=== PATIENT | male | born 1975 | race Caucasian/White ===

== ENCOUNTER 2016-05-03 09:27 | Emergency (ER) | payer OTHER ==
[~2016-05-03] VITALS: Ht 190.5 cm; Wt 122.7 kg
[2016-05-03 09:29] VITALS: BP 148/103; PULSE 103; RESP 16; O2SAT 97
--- NOTE | 2016-05-03 09:42 | ED.REPORT ---
HPI-Extremity Problem Lower Date of Service May 03, 2016 ED Provider: Dr. Reagan Patrick M.D. A 41 year old male with a history of hypertension presents to the ED with left calf pain and swelling onset today upon awakening. The pain waxes and wanes. The patient denies chest pain, shortness of breath, or cough. 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 He also denies injury/trauma to the area or recent surgeries. The patient has a family history of DVT. Nursing Notes Stated Complaint: L LEG PAIN Chief Complaint: Extremity Trauma Nursing Notes Reviewed: Yes Allergies: Coded Allergies: Sulfa (Sulfonamide Antibiotics) (Verified Allergy, Severe, Anaphylaxis, ) morphine (Verified Adverse Reaction, Severe, Cardiac Arrest, 05/03/16) meperidine (Verified Adverse Reaction, Unknown, 05/03/16) Scheduled Enoxaparin (Lovenox) 120 Mg/0.8 Ml Syringe 120 MG SUBQ BID Warfarin Sodium (Warfarin Sodium) 5 Mg Tablet 5 MG PO DAILY General Time Seen by MD: 09:41 Chief Complaint Other (Left calf pain) Hx Obtained From: Patient Arrived By: Walk-in Onset Occurred: 1 - 4 hours ago Symptom Duration: Since onset Location: : Leg left (Calf) Quality: Painful Severity: Current: Moderate Severity: Maximum: Moderate Associated with: Reports: Fever, Swelling Pertinent Negative: Relieved by nothing Immunizations: Unknown Recent Healthcare: No recent doctor visit Similar Sx Previous: No Past Medical History Past Medical History Hypertension Past Surgical History None reported Family History DVT Smoking History Unknown if Ever Smoker Social History Other Social History: Good social support Ambulatory Status Independent Review of Systems Constitutional: Denies: Fever Musculoskeletal: Reports: Extremity pain (Left calf), Extremity swelling (Left calf) Complete sys rev & neg: except as marked. Respiratory: Denies: Non-productive cough, Shortness of breath Cardiovascular: Denies: Chest pain GI: Denies: Vomiting Physical Exam Initial Vital Signs Vital Signs (First) Date Time Temp Pulse Resp B/P Pulse Ox O2 Delivery O2 Flow Rate FiO2 05/03/16 09:29 36.7 103 16 148/103 97 Room Air Initial VS: Reviewed Head / Eyes: Atraumatic, Normocephalic ENT: Conjunctiva normal, No scleral icterus Neck: Supple, Full range of motion Respiratory: Breath sounds normal, Clear to auscultation, No respiratory distress Cardiovascular: Regular rate & rhythm, Heart sounds normal Skin: Warm, Dry, No cyanosis Neurologic: Alert, Oriented, Nonfocal Psychiatric: Mood/affect normal, Behavior normal, Normal thought content Lower Extremity / Pelvis / MS: No deformity Left Knee: Positive: Swelling present... (Proximal), Tenderness present... ( Proximal) Induration to proximal calf Swelling, tenderness, and induration to proximal popliteal fossa No tenderness to left medial thigh Ankle / Foot: Atraumatic, Inspection NL Interpretation & Diagnostics US VENOUS LEG DUPLEX, LEFT: IMPRESSION: Abnormal study demonstrating left lower extremity deep vein thrombosis. Dictated by: Maribel Dan MD, PhD on 05/03/2016 at 11:19 Re-Eval/Medical Decision Re-Evaluation/Progress : Time of Eval: 11:21 Patient Status: Condition improved Re-Evaluation/Progress Note: Discussed with patient ultrasound results, diagnosis, and plan for discharge. Follow-up and return to the ER instructions given. Patient agrees with plan for care and all questions were addressed. Counseled Regarding: Diagnosis, Need for follow-up, When/why to return to ED Discharge & Departure Impression: Primary Impression: DVT (deep venous thrombosis) DVT location: lower extremity Affected thrombotic vein of extremity: femoral Laterality: left Chronicity: acute Qualified Code: I82.412 - Acute embolism and thrombosis of left femoral vein Disposition: Home Discharge Condition All VS Reviewed: Yes Condition: Stable Patient Instructions: Deep Venous Thrombosis (ED) Additional Instructions: Thank you for entrusting us with your care. The ultrasound today showed that you have a blood clot in your left leg. You need medication to stabilize the clot and prevented from embolizing. I recommend the following: Lovenox (enoxaparin) 100 mg subcutaneously every 12 hours until warfarin (Coumadin) is therapeutic. Take warfarin 5 mg daily today, tomorrow and Friday. Do not take warfarin on Friday until you have your PT/INR checked. Call the clinic today to make an appointment for Friday. Friday is too late. If you having trouble scheduling a Friday appointment, call back to the ER and we will help you. Return to the ER with any new or worsening symptoms. Return to the emergency department for fainting, chest pain or shortness of breath. For pain I recommend acetaminophen (Tylenol) 1000 mg every 6 hours and/or ibuprofen 800 mg every 8 hours. Referrals: Chen Cabrera MD 2-3 days Scribe Attestation Portions of this note were transcribed by Joie Cooper. I, Dr. Patrick, personally performed the history, physical exam, and medical decision-making; I reviewed and confirmed the accuracy of the information in the transcribed note. Signed by: Blayne Tineo, 05/03/2016, 11:55 copies to: Chen Cabrera MD, Kirk H MD May 03, 2016 09:42 JOIE COOPER May 03, 2016 09:47
--- NOTE | 2016-05-03 11:20 | DRSVH ---
PROCEDURE: US VEINOUS LEG DUPLEX UNILATERAL, LEFT INDICATIONS: LLE swelling TECHNIQUE: Real-time imaging, as well as color and pulse Doppler interrogation, were performed of the lower extr emity deep veins from the inguinal ligament to the popliteal fossa. COMPARISON: None. FINDINGS: Occlusive thrombus involving the left superficial femoral vein left popliteal vein and left peroneal veins noted. Nonocclusive thrombus is noted in the distal left common femoral vein. IMPRESSION: Abnormal study demonstrating left lower extremity deep vein thrombosis. Dictated by: Maribel Dan MD, PhD on 05/03/2016 at 11:19 Approved by: Maribel Dan MD, PhD on 05/03/2016 at 11:19
[2016-05-03] MEDS ORDERED: LOV120 SUBQ (11:30)
[2016-05-03] MEDS ORDERED: WARF5TAB7 PO (11:30)
[2016-05-03 11:50] VITALS: BP 141/98; PULSE 94; RESP 16; O2SAT 97
== END 2016-05-03 11:51 | disposition home or self-care (01) ==
LOC: SED 09:27
DX: I82.412 Acute embolism and thrombosis of left femoral vein (principal); I10 Essential (primary) hypertension; Z88.2 Allergy status to sulfonamides; Z88.5 Allergy status to narcotic agent; Z88.8 Allergy status to other drugs, medicaments and biological substances
CPT/HCPCS: 93970; 96372; 99284; J1650